=== PATIENT | female | born 1950 | race Caucasian/White ===

== ENCOUNTER 2022-04-07 05:25 | Day surgery (SDC) | payer MEDICARE ==
[~2022-04-07] VITALS: Ht 172.7 cm; Wt 98.8 kg
[2022-04-07 06:17] VITALS: BP 126/55; PULSE 56; TEMP 97.7
[2022-04-07 08:47] VITALS: BP 155/65; PULSE 63; TEMP 97.2
--- NOTE | 2022-04-07 08:47 | NUR ---
Patient arrived back into [facility] from OR. Patient is alert and oriented. Vital signs stable on room air. Report received from MIRIAM Peterson and VERO Salas. Patient requesting water and muffin. Patient denies pain and nausea. Call light left within reach.
[2022-04-07 09:02] VITALS: BP 122/56; PULSE 77
--- NOTE | 2022-04-07 09:02 | NUR ---
Patient vitally stable. Tolerating food and drink well. Denies pain or nausea at this time. Patient able to wiggle fingers, unable to feel touch, and unable to perform gross arm movements.
[2022-04-07 09:17] VITALS: BP 129/62; PULSE 63
--- NOTE | 2022-04-07 09:17 | NUR ---
Patient vitally stable. Tolerating food and drink well. Denies pain or nausea at this time. Assisted patient in getting dressed.
--- NOTE | 2022-04-07 09:30 | NUR ---
Meets discharge criteria. IV removed without complications. Went through discharge instructions with patient. Questions answered. [facility] packet given to patient with hospital discharge instructions. Patient then escorted to the emergency department entrance where friend, Ankit, met patient. Patient left in the care of her friend.
== END 2022-04-07 09:35 | disposition home or self-care (01) ==
LOC: SDCO 05:25
DX: M18.12 Unilateral primary osteoarthritis of first carpometacarpal joint, left hand (principal); Z28.310 Unvaccinated for COVID-19; Z28.9 Immunization not carried out for unspecified reason
CPT/HCPCS: C1713; J0690; J1100; J1885; J2250; J2405; J2704; J2795; J7120